=== PATIENT | female | born 2000 | race Two or more races ===

== ENCOUNTER 2025-06-13 15:22 | Outpatient (CLI) | payer OTHER, BC ==
--- NOTE | 2025-06-14 08:59 | RADIOLOGY REPORT ---
CLINICAL HISTORY: PAIN IN LEFT KNEE COMPARISON: None TECHNIQUE: Multisequence multiplanar MRI images of the left knee were obtained without contrast. FINDINGS: Cruciate ligaments: ACL and PCL are intact. Extensor mechanism: Quadriceps mechanism and patellar tendon are intact. Collateral ligaments: Medial and lateral collateral ligaments are intact and otherwise unremarkable. Menisci: No significant degeneration. No evidence of meniscal tear. Cartilage: No focal chondral defect or significant chondromalacia. Bones: No acute fracture or focal marrow contusion. Joint fluid: No significant joint effusion. Other: No other significant findings. IMPRESSION: No evidence of internal derangement in the left knee.
== END 2025-06-13 23:59 | disposition home or self-care (01) ==
LOC: MRI02 15:22
PROVIDERS: ATTEND Family Medicine Sports Medicine
DX: M25.562 Pain in left knee (principal); M77.9 Enthesopathy, unspecified
CPT/HCPCS: 73721